=== PATIENT | male | born 1990 | race Two or more races ===

== ENCOUNTER 2023-01-08 09:44 | Emergency (ER) | payer OTHER ==
[~2023-01-08] VITALS: Ht 170.2 cm; Wt 92.5 kg
[2023-01-08] MEDS ORDERED: MOLNUPIRAVIR (200 MG PO (11:23)
== END 2023-01-08 11:27 | disposition home or self-care (01) ==
LOC: ER 09:44
DX: U07.1 COVID-19 (principal)